=== PATIENT | male | born 1985 | race Caucasian/White ===

== ENCOUNTER 2016-08-02 08:06 | Emergency (ER) | payer OTHER ==
[2016-08-02 08:16] VITALS: BP 126/75; PULSE 66; TEMP 97.8; BMI 25.0
[2016-08-02] MEDS ORDERED: IBUPROFEN 600 MG TABLET (FP) PO ONE ×2 (09:06→09:15)
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
== END 2016-08-02 09:44 | disposition home or self-care (01) ==
LOC: JERFT 08:06
DX: Z04.1 Encounter for examination and observation following transport accident (principal); V43.52XA Car driver injured in collision with other type car in traffic accident, initial encounter; Y93.89 Activity, other specified; Y92.410 Unspecified street and highway as the place of occurrence of the external cause
CPT/HCPCS: 73130-TC-LT; 99281-25

== ENCOUNTER 2019-07-01 10:56 | Emergency (ER) | payer OTHER ==
[2019-07-01 11:12] VITALS: BP 141/91; PULSE 86; TEMP 98.3; BMI 27.3
--- NOTE | 2019-07-01 11:26 | PDOC ---
History of Present Illness - General Chief Complaint: Respiratory Stated Complaint: COLD SYMPTOMS Time Seen by Provider: 07/01/19 11:12 History Source: Patient Exam Limitations: No Limitations - History of Present Illness Initial Comments: 07/01/19 11:20 Patient is a 34-year-old male who presents to the ED with complaint of cough, intermittent fever, body aches and chills for the last 2 days. He states his son was seen earlier today and diagnosed with influenza. He denies fever at this time. He states he does feel nauseated but he has not been vomiting and has not had diarrhea. He states he did not get a flu shot this year. He denies any headache or stiff neck. He denies any past medical history. He does state that he smokes cigarettes intermittently. Past History - Past Medical History Allergies/Adverse Reactions: Allergies Allergy/AdvReac Type Severity Reaction Status Date / Time No Known Allergies Allergy Verified 07/01/19 11:07 Home Medications: Ambulatory Orders Cyclobenzaprine HCl [Flexeril 10 mg] 10 mg PO HS PRN #10 tablet 02/14/18 Ibuprofen [Motrin -] 600 mg PO TID #30 tablet 02/14/18 Oseltamivir Phosphate [Tamiflu] 75 mg PO BID 5 Days #9 capsule 07/01/19 COPD: No DVT: No - Immunization History Immunization Up to Date: Yes - Psycho Social/Smoking Cessation Hx Smoking History: Never smoked Have you smoked in the past 12 months: No Hx Alcohol Use: No Drug/Substance Use Hx: No Substance Use Type: None Review of Systems - Review of Systems Comments:: 07/01/19 11:21 - Review of Systems Able to Perform ROS?: Yes Constitutional: Positive intermittent fevers, + chills, + loss of appetite; No: Night Sweats, Weakness HEENTM: No: Eye Pain, Vision changes, Ear Pain, Throat Pain, Throat Swelling, Mouth Pain, Difficulty Swallowing Respiratory: No: Shortness of Breath, Wheezing; Positive: cough, intermittent Sputum Production Cardiac (ROS): No: Chest Pain, Chest Tightness, Palpitations, Irregular Heart Beat, Edema ABD/GI: No: Vomiting, Abdominal Pain, Diarrhea; + nausea : No Dysuria, No Hematuria, No Frequency, No Urgency, No Vaginal Discharge/ Pain, No Penile Discharge/Pain Musculoskeletal: No: Back Pain, Joint Pain, Muscle Weakness, Neck Pain; + muscle aches Integumentary: No: Lesions, Rash Neurological: No: Headache, Numbness, Tingling, Weakness, Speech Difficulties *Physical Exam - Vital Signs Last Vital Signs Temp Pulse Resp BP Pulse Ox 98.3 F 86 18 141/91 97 07/01/19 11:04 07/01/19 11:04 07/01/19 11:04 07/01/19 11:04 07/01/19 11:04 - Physical Exam 07/01/19 11:24 - Physical Exam General Appearance: Nourished, Appropriately Dressed, No Distress HEENT: EOMI, Normal Voice, TMs Normal, No Rhinorrhea, Hearing Grossly Normal, No TM Bulging. No Muffled/Hoarse voice, No Tonsillar Exudate, No Tonsillar Erythema, No TM Dullness, No TM Erythema; Mild Pharyngeal Erythema, + Nasal Congestion Neck: Supple, + Lymphadenopathy (R), + Lymphadenopathy (L), No Rigidity, No Decreased range of motion Respiratory/Chest: Lungs Clear, Normal Breath Sounds. No Respiratory Distress, No Accessory Muscle Use Cardiovascular: Regular Rhythm, Regular Rate, S1, S2 Gastrointestinal/Abdominal: Normal Bowel Sounds, Soft. Non-tender, No Guarding , No Rebound, No Rigidity Musculoskeletal: Normal Inspection. No Decreased Range of Motion Extremity: Normal Capillary Refill, Normal Inspection Integumentary: Normal Color, Dry. 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 At this time, we will give the patient his first dose of Tamiflu in the ED and send him with a prescription for Tamiflu. The prescription has been sent to his pharmacy. He should follow-up with his primary doctor within 1 to 2 days for repeat evaluation. He should increase his fluids and take Tylenol or ibuprofen for fevers or body aches. He has been given strict return precautions such as high fevers, shaking chills, shortness of breath or any other worsening symptoms. Discharge - Discharge Information Problems reviewed: Yes Clinical Impression/Diagnosis: Influenza A Condition: Stable Disposition: HOME - Additional Discharge Information Prescriptions: Oseltamivir Phosphate [Tamiflu] 75 mg PO BID 5 Days #9 capsule - Follow up/Referral - Patient Discharge Instructions Patient Printed Discharge Instructions: Influenza Additional Instructions: Get plenty of rest and drink plenty of fluids. Take Tylenol or ibuprofen for fevers or body aches. Follow-up with your primary doctor within 1 to 2 days for repeat evaluation. Return to the ED for high fevers, shaking chills, profuse vomiting or any other worsening symptoms. - Post Discharge Activity Work/Back to School Note: Back to Work
[2019-07-01] MEDS ORDERED: OSELTAMIVIR PHOSPHATE 75 MG CAPSULE PO ONE (11:46)
[2019-07-01] MEDS ORDERED: OSELTAMIVIR PHOSPHATE 75 MG CAPSULE ONE (11:49)
== END 2019-07-01 12:19 | disposition home or self-care (01) ==
LOC: JERFT 10:56
DX: J09.X2 Influenza due to identified novel influenza A virus with other respiratory manifestations (principal)
CPT/HCPCS: 87804; 99281-25

== ENCOUNTER 2020-11-02 19:46 | Emergency (ER) | payer OTHER ==
[2020-11-02 19:57] VITALS: BP 140/82; PULSE 75; TEMP 98.9; BMI 29.0
[2020-11-02] MEDS ORDERED: AZITHROMYCIN 500 MG TABLET PO ONE ×2 (20:02→20:08)
[2020-11-02] MEDS ORDERED: AZITHROMYCIN 500 MG TABLET ONE (20:09)
[2020-11-02 20:18] LABS: EPI CELLS 3 /uL (0-25.1); HYALINE CASTS 0 /uL (0-3.1); PH,URINE 5.5 (5.0-8.0); URINE APPEARANCE CLEAR; URINE BACTERIA 219 /uL (0-1359); URINE BILIRUBIN NEGATIVE (NEGATIVE); URINE COLOR YELLOW; URINE GLUCOSE (UA) NEGATIVE (NEGATIVE); URINE KETONE NEGATIVE (NEGATIVE); URINE LEUK ESTERASE 2+ (NEGATIVE); URINE NITRITE NEGATIVE (NEGATIVE); URINE PROTEIN NEGATIVE (NEGATIVE); URINE RBC 171 /uL (0-23.9); URINE UROBILINOGEN 0.2 mg/dL (0.2-1.0); URINE WBC 1 /uL (0-25.8)
== END 2020-11-02 20:20 | disposition home or self-care (01) ==
LOC: JER 19:46 → JERFT 19:46
DX: R30.0 Dysuria (principal); R36.9 Urethral discharge, unspecified
CPT/HCPCS: 36415; 81003; 87086; 87491; 87591; 99284-25

== ENCOUNTER 2022-03-22 18:36 | Emergency (ER) | payer OTHER ==
[2022-03-22 18:43] VITALS: BP 118/79; PULSE 72; RESP 18; TEMP 97.8; BMI 29.2
[2022-03-22] MEDS ORDERED: KETOROLAC TROMETHAMINE 30 MG/1 ML VIAL IM ONE (19:55)
[2022-03-22] MEDS ORDERED: ACETAMINOPHEN 500 MG TABLET (FP) PO ONE (19:55)
[2022-03-22] MEDS ORDERED: CYCLOBENZAPRINE HCL 10 MG TABLET (FP) PO ONE (19:55)
[2022-03-22] MEDS ORDERED: LIDOCAINE 5% TOPICAL PATCH TP ONE (19:55)
[2022-03-22] MEDS ORDERED: ACETAMINOPHEN 500 MG TABLET (FP) ONE (19:57)
[2022-03-22] MEDS ORDERED: KETOROLAC TROMETHAMINE 30 MG/1 ML VIAL ONE (19:57)
[2022-03-22] MEDS ORDERED: CYCLOBENZAPRINE HCL 10 MG TABLET (FP) ONE (19:57)
[2022-03-22] MEDS ORDERED: LIDOCAINE 5% TOPICAL PATCH ONE (19:57)
[2022-03-22] MEDS ORDERED: LIDOCAINE PATCH REMOVAL MC SCH (22:00)
== END 2022-03-22 20:46 | disposition home or self-care (01) ==
LOC: JERFT 18:36
PROC: 3E0233Z Introduction of Anti-inflammatory into Muscle, Percutaneous Approach (ICD-10-PCS; principal; 2022-03-22)
DX: M54.2 Cervicalgia (principal); V49.50XA Passenger injured in collision with unspecified motor vehicles in traffic accident, initial encounter
CPT/HCPCS: 99284-25